=== PATIENT | female | born 1980 | race Caucasian/White ===

== ENCOUNTER 2018-02-03 09:01 | Day surgery (SDC) | payer OTHER ==
[~2018-02-03] VITALS: Ht 175.3 cm; Wt 110.2 kg
[~2018-02-03 09:01] MED LIST: ALBU90OI61 INH; BUSP15 PO; Bactrim Ds Tab1 EACH PO; CALCA500CH PO; CITA20 PO; CLON.5 PO; CLON1 PO; CYCL10 PO; Clonazepam1 MG PO; ESCI10; ESZO2 PO; HYDACE5 PO; IBUP600 PO; IBUP800 PO; LABE100 PO; MARAJUANA; OXYACE5T PO; OXYC5 PO; Omeprazole20 M1 PO; Prenatal Vitam1 EAC2 PO; SULTRIDS PO; TRAM50 PO
== END 2018-02-03 22:41 | disposition home or self-care (01) ==
LOC: ORSCMMR 09:01
PROVIDERS: Internal Medicine Gastroenterology
PROC: 0DBL8ZX Excision of Transverse Colon, Via Natural or Artificial Opening Endoscopic, Diagnostic (ICD-10-PCS; principal; 2018-02-03 10:00)
PROC: 0DBN8ZX Excision of Sigmoid Colon, Via Natural or Artificial Opening Endoscopic, Diagnostic (ICD-10-PCS; principal; 2018-02-03 10:00)
PROC: 0DB68ZX Excision of Stomach, Via Natural or Artificial Opening Endoscopic, Diagnostic (ICD-10-PCS; principal; 2018-02-03 10:00)
PROC: 0DBB8ZX Excision of Ileum, Via Natural or Artificial Opening Endoscopic, Diagnostic (ICD-10-PCS; principal; 2018-02-03 10:00)
PROC: 0DBK8ZX Excision of Ascending Colon, Via Natural or Artificial Opening Endoscopic, Diagnostic (ICD-10-PCS; principal; 2018-02-03 10:00)
PROC: 0DB98ZX Excision of Duodenum, Via Natural or Artificial Opening Endoscopic, Diagnostic (ICD-10-PCS; principal; 2018-02-03 10:00)
DX: R10.13 Epigastric pain (principal); K63.5 Polyp of colon; R19.7 Diarrhea, unspecified; Z80.0 Family history of malignant neoplasm of digestive organs; F43.10 Post-traumatic stress disorder, unspecified; F41.9 Anxiety disorder, unspecified; Z79.899 Other long term (current) drug therapy; F17.210 Nicotine dependence, cigarettes, uncomplicated
CPT/HCPCS: 88305; 88342; J2250; J7120

== ENCOUNTER → 2019-04-07 | Outpatient (CLI) | payer OTHER ==
[2019-04-07 19:31] LABS: Source, Urine Catheter
[2019-04-07 19:56] LABS: Appearance, Urine Clear (Clear); Bilirubin, Urine Neg (Neg); Blood, Urine Neg (Neg); Color, Urine Yellow (P-Yellow); Glucose Qualitative, Urine Neg (Neg); Ketones, Urine Neg (Neg); Leukocyte Esterase, Urine Neg (Neg); Nitrite, Urine Neg (Neg); Protein, Urine Neg (Neg); Urobilinogen, Urine NORM (Normal)
== END | disposition home or self-care (01) ==
LOC: LAB 19:29 → LAB SHORT 19:29
PROVIDERS: Obstetrics & Gynecology Gynecology
DX: Z12.4 Encounter for screening for malignant neoplasm of cervix (principal); N89.8 Other specified noninflammatory disorders of vagina; R30.0 Dysuria
CPT/HCPCS: 81003